=== PATIENT | female | born 1995 | race African-American/Black ===

== ENCOUNTER 2019-03-25 06:22 | Inpatient (IN) ==
[2019-03-25 07:10] LABS: Apearance,Urine CLEAR (Clear); Bilirubin,Urine Negative (Negative); Blood, Urine Small mg/dL (Negative); Glucose,Urine (UA) Negative (Negative); Ketones,Urine 5 mg/dL (Negative); Mucus,Urine Occasional /LPF (Occasional); Nitrite,Urine Negative (Negative); Protein,Urine Negative; RBC,Urine <1 /HPF (0-4); Squamous Epithelial Cell,Urine Occasional /HPF (0-10); Urine Color Straw (Yellow); Urine Specific Gravity 1.009 (1.001-1.035); Urine Urobilinogen < 2.0 EU/DL (0.2-1.0); WBC,Urine 2 /HPF (0-6)
[2019-03-25] MEDS ORDERED: LACTATED RINGERS 1,000 ML IV PRN (09:38)
[2019-03-25] MEDS ORDERED: ONDANSETRON 4 MG/2 ML VIAL IV PRN ×2 (09:38→17:16)
[2019-03-25] MEDS ORDERED: BUTORPHANOL 1 MG/ML VIAL IV PRN (09:38)
[2019-03-25] MEDS ORDERED: diphenhydrAMINE 50 MG/1 ML VIAL IV PRN ×2 (09:50)
[2019-03-25] MEDS ORDERED: CITRIC ACID/SODIUM CITRATE 30 ML UDCUP PO ONE (09:50)
[2019-03-25] MEDS ORDERED: hydrOXYzine HCL 25 MG/1 ML VIAL IM PRN (09:50)
[2019-03-25] MEDS ORDERED: ePHEDrine 50 MG/ML AMP IV PRN (09:50)
[2019-03-25] MEDS ORDERED: NALOXONE 0.4 MG/ML VIAL IV PRN (09:50)
[2019-03-25] MEDS ORDERED: PROMETHAZINE 25 MG/1 ML VIAL IM ONE (09:50)
[2019-03-25] MEDS ORDERED: ONDANSETRON 4 MG/2 ML VIAL IV ONE (09:50)
[2019-03-25] MEDS ORDERED: FAMOTIDINE 20 MG/2 ML VIAL IV ONE (09:50)
[2019-03-25] MEDS ORDERED: LACTATED RINGERS 1,000 ML IV SCH (10:00)
[2019-03-25] MEDS ORDERED: fentaNYL 2 MCG/ROPIV 0.2% EPID 100 ML EPIDURAL SCH (10:00)
[2019-03-25] MEDS ORDERED: OXYTOCIN/LR 20 UNIT/1,000 ML BAG IV SCH (10:00)
[2019-03-25] MEDS ORDERED: AMPICILLIN INJ 2,000 MG in SODIUM CHLORIDE 0.9% 100 ML IV SCH (10:00)
[2019-03-25 10:08] LABS: Basophils # 0.1 10*3/uL (0.0-0.2); Basophils % 0.4 % (0.0-0.8); Eosinophils # 0.1 10*3/uL (0.0-0.87); Eosinophils % 1.2 % (0.00-10.9); Hemoglobin 9.2 GM/DL (12.0-16.0); Immature Granulocytes % 1.1 %; Immature Granulocytes Absolute 0.12 #; Lymphocytes # 2.1 10*3/uL (1.4-4.0); Lymphocytes % 18.4 % (21.3-54.2); Mean Corpuscular HGB Conc 32.9 GM/DL (32-36); Mean Corpuscular Volume 78.7 FL (87-102); Mean Platelet Volume 10.1 FL (9.6-12.0); Monocytes % 6.7 % (1.7-12.7); Neutrophils % 72.2 % (38.7-73.9); Platelet Count 305 T/CUMM (130-400); Red Blood Count 3.56 MC/CUMM (3.8-5.5); White Blood Count 11.2 T/CUMM (4-12)
[2019-03-25 11:42] LABS: HIV Antigen/Antibody Result Nonreactive (Nonreactive); Hepatitis B Surface Ag Quant 0.33 Index; Hepatitis B Surface Ag Result Negative (Negative); Rubella Antibody IgG 243.4 IU/ML
[2019-03-25 14:28] LABS: Apearance,Urine CLEAR (Clear); Bilirubin,Urine Negative (Negative); Blood, Urine Negative (Negative); Glucose,Urine (UA) Negative (Negative); Ketones,Urine Negative (Negative); Mucus,Urine Occasional /LPF (Occasional); Nitrite,Urine Negative (Negative); Protein,Urine Negative; RBC,Urine 1 /HPF (0-4); Squamous Epithelial Cell,Urine Occasional /HPF (0-10); Urine Color Straw (Yellow); Urine Urobilinogen < 2.0 EU/DL (0.2-1.0); WBC,Urine <1 /HPF (0-6)
[2019-03-25] MEDS ORDERED: CARBOPROST TROMETHAMINE 250 MCG/ML AMP IM ONE (14:48)
[2019-03-25] MEDS ORDERED: miSOPROStoL 200 MCG TABLET ONE (14:48)
[2019-03-25] MEDS ORDERED: METHYLERGONOVINE 0.2 MG/1 ML AMP ONE (14:48)
[2019-03-25] MEDS ORDERED: OXYTOCIN/LR 20 UNIT/1,000 ML BAG IV ONE (19:24)
[2019-03-25] MEDS ORDERED: BENZOCAINE 20%/MENTHOL 0.5% SPRAY 56 GM CAN TOP PRN (19:27)
[2019-03-25] MEDS: IBUPROFEN 800 MG TABLET PO PRN (19:48)
[2019-03-25] MEDS ORDERED: WITCH HAZEL PADS 100/JAR TOP PRN (20:35)
[2019-03-25] MEDS ORDERED: HYDROCORTISONE 2.5% RECTAL CREAM 30 GM TUBE TOP PRN (20:35)
[2019-03-25] MEDS: DOCUSATE SODIUM 100 MG/10 ML UDCUP PO SCH (20:42)
[2019-03-25] MEDS ORDERED: FERROUS SULFATE 325 MG TABLET PO SCH (21:00)
[2019-03-25] MEDS ORDERED: DOCUSATE SODIUM 100 MG CAPSULE PO SCH (21:00)
[2019-03-25] MEDS: FERROUS SULFATE 300 MG/5 ML UDCUP PO SCH (22:04)
[2019-03-26 05:40] LABS: Basophils % 0.2 % (0.0-0.8); Eosinophils # 0.1 10*3/uL (0.0-0.87); Eosinophils % 0.6 % (0.00-10.9); Hematocrit 31.7 VOL% (35.7-47.0); Hemoglobin 10.1 GM/DL (12.0-16.0); Immature Granulocytes % 0.8 %; Immature Granulocytes Absolute 0.14 #; Lymphocytes # 2.6 10*3/uL (1.4-4.0); Lymphocytes % 15.5 % (21.3-54.2); Mean Corpuscular HGB Conc 31.9 GM/DL (32-36); Mean Corpuscular Volume 78.5 FL (87-102); Monocytes % 6.1 % (1.7-12.7); Neutrophils % 76.8 % (38.7-73.9); Platelet Count 320 T/CUMM (130-400); Red Blood Count 4.04 MC/CUMM (3.8-5.5); Red Cell Distribution Width 14.2 % (9.3-17.3); White Blood Count 16.9 T/CUMM (4-12)
[2019-03-26] MEDS: FERROUS SULFATE 300 MG/5 ML UDCUP PO SCH ×2 (09:00→21:55)
[2019-03-26] MEDS: DOCUSATE SODIUM 100 MG/10 ML UDCUP PO SCH ×2 (09:00→21:55)
[2019-03-26] MEDS: MULTIVITAMIN (PRENATAL) TABLET PO SCH (09:01)
[2019-03-26] MEDS: IBUPROFEN 800 MG TABLET PO PRN ×2 (11:57→19:55)
[2019-03-27] MEDS: IBUPROFEN 800 MG TABLET PO PRN (05:18)
[2019-03-27] MEDS: DOCUSATE SODIUM 100 MG/10 ML UDCUP PO SCH (09:21)
[2019-03-27] MEDS: FERROUS SULFATE 300 MG/5 ML UDCUP PO SCH (09:21)
[2019-03-27] MEDS: MULTIVITAMIN (PRENATAL) TABLET PO SCH (09:23)
[2019-03-27 11:14] VITALS: BP 115/62
== END 2019-03-27 12:50 | disposition home or self-care (01) | DRG 560 ==
LOC: N.LDOUT 06:22 → N.LD 06:24 → N.OB 17:00
PROVIDERS: ADMIT Obstetrics & Gynecology; ATTEND Obstetrics & Gynecology